=== PATIENT | female | born 2000 | race Caucasian/White ===

== ENCOUNTER 2021-06-26 16:03 | Emergency (ER) | payer OTHER, SELFPAY ==
[2021-06-26] VITALS (13 sets, daily range): BP systolic 108–129; BP diastolic 65–82; PULSE 103–142; RESP 12–26; TEMP 37.1; O2SAT 100
--- NOTE | ~2021-06-26 | US_ITS ---
EXAMINATION: US OB <= 14 weeks fetus DATE: 06/26/2021 22:35 INDICATION: Abdominal pain and vomiting during first trimester TECHNIQUE: Real-time pelvic transabdominal and transvaginal ultrasound was performed. COMPARISON: None. FINDINGS: The uterus measures 14.8 x 9.9 x 8.8 cm. There is an intrauterine gestational sac. A yolk sac is identified. heart motion is identified measuring 187 beats per minute (bpm) by M-mode Do ppler. The crown rump length measures 2.2 cm, which correlates with an estimated gestational ag e of 8 weeks and 6 day(s). The left ovary is not visualized however no left adnexal abnormality is seen. The right ovary measure s 5.2 x 2.5 x 3.7 cm and contains a 3 cm cyst. There is normal vascular flow in the right ovary. Ther e is no free fluid in the pelvis. IMPRESSION: 1. Live intrauterine with an estimated gestational age of 8 weeks and 6 days. Reviewed, dictated and finalized at location F. [employer]IDE
--- NOTE | 2021-06-26 18:35 | ECG_ITS ---
Measurements Intervals [place] Rate: 109 P: 73 RI: 176 QRS: 51 QRSD: 81 T: 26 QT: 321 QTc: 434 Interpretive Statements SINUS TACHYCARDIA POSSIBLE LEFT ATRIAL ENLARGEMENT INCOMPLETE RIGHT BUNDLE BRANCH BLOCK BORDERLINE T WAVE ABNORMALITY- INFERIOR LEADS ABNORMAL ECG Electronically Signed On 06-26-2021 20:04:27 [employer] by Segundo Hall D.O.
--- NOTE | 2021-06-26 19:00 | PC.NURSE ---
Assuming care of pt.
[2021-06-26 19:08] LABS: Basophils Percent Auto 0.4 % (0.2-1.2); Eosinophils Percent Auto 0.2 % (0-4.4); Hematocrit 38.3 % (37.0-47.0); Hemoglobin 12.5 g/dL (12.0-15.0); Immature Granulocyte Absolute 0.02 K/mm3 (0.00-0.031); Immature Granulocyte Percent A 0.4 % (0-0.5); Lymphocytes Absolute Auto 0.41 K/mm3 (0.9-3.2); Lymphocytes Percent Auto 8.1 % (18.3-44.2); Mean Corpuscular HGB Conc 32.6 g/dl (32-36); Mean Corpuscular Hemoglobin 27.7 pg (26-34); Mean Corpuscular Volume 84.7 fl (80-100); Mean Platelet Volume 9.9 fl (7.4-10.4); Monocytes Absolute Auto 0.3 K/mm3 (0.1-0.6); Monocytes Percent Auto 6.7 % (2.6-8.5); Neutrophils Absolute Auto 4.3 K/mm3 (1.3-6.7); Neutrophils Percent Auto 84.2 % (45.5-73.1); Platelet Count Result 285 k/mm3 (150-375); Red Blood Count 4.52 M/mm3 (4.2-5.4); Red Cell Distribution Width 14.4 % (11.5-14.5); White Blood Count 5.1 K/mm3 (4.5-10.0)
--- NOTE | 2021-06-26 19:11 | ED.PREGNANCY ---
HPI - General Chief complaint: Weakness Stated complaint: lightheaded/vomiting Time Seen by Provider: 06/26/21 18:35 Source: patient and RN notes reviewed Mode of arrival: ambulatory Limitations: no limitations History of Present Illness HPI Narrative: This is 21 year old female who presents for evaluation of nausea and vomiting during . She reports she was found to be 2 months ago when she was seen in another ER. She was diagnosed with UTI and discharge home on antibiotics. She states she developed low back pain and abdominal pain last week so she went back to ER. She was given antibiotics again . She has come to ER because she started having nausea, vomiting yesterday. She has history of irregular menses so she is unsure of how far along in her . She denies fever, chills, vaginal bleeding, or discharge. She has not had an US for this . Related Data Home Medications Medication Instructions Recorded Confirmed cephalexin [Keflex] 500 mg PO Q8H 06/26/21 06/26/21 Allergies Allergy/AdvReac Type Severity Reaction Status Date / Time amoxicillin Allergy Rash Verified 06/26/21 18:46 sulfamethoxazole Allergy Rash Verified 06/26/21 18:46 [From Bactrim] trimethoprim [From Bactrim] Allergy Rash Verified 06/26/21 18:46 Review of Systems Review of Systems: All systems reviewed & are unremarkable except as noted in HPI and below Constitutional: Constitutional: Denies chills, Reports fatigue and Denies fever(s) ENT: Denies dysphagia and Denies sore throat Cardiovascular: Cardiovascular: Denies chest pain Respiratory: Respiratory: Denies cough and Denies dyspnea Gastrointestinal: Gastrointestinal: Reports abdominal pain, Denies diarrhea, Reports nausea and Reports vomiting Genitourinary: Genitourinary: Denies hematuria and Denies nocturia Musculoskeletal: Musculoskeletal: Reports back pain Neurologic: Denies headache(s) [facility] Past Medical History Medical History (Updated 06/27/21 @ 00:00 by Raul Armas) Acute UTI Kidney disease Surgical History Surgical History (Updated 06/26/21 @ 19:21 by Samira Ramesh MD) No pertinent past surgical history Social History Social History (Updated 06/26/21 @ 19:21 by Samira Ramesh MD) Smoking status: Never smoker Exam Const: General: no acute distress and alert Orientation/consciousness: patient oriented x3 Eyes: EOM: EOMs intact bilaterally Resp: Effort & Inspection: normal respiratory effort and no retractions Auscultation: clear to auscultation bilaterally Cardio: Rate: tachycardic Rhythm: regular rhythm Heart sounds: no murmurs GI: GI Palp: Yes Soft to palpation, Yes Tenderness to palpation present (GI) (suprapubic), No Guarding due to palpation present (GI) and No Rigid due to palpation Auscultation: normal bowel sounds Back/Spine/Pelvis: Back: no CVA tenderness Skin: General skin exam: normal color Rashes: no rashes Neuro: General: patient oriented x3, moves all extremities and CN's II-XI intact bilaterally Psych: Mental Status: mental status grossly normal Affect: normal affect Course Reevaluation(s) Reevaluation #1: Patient states she feels better. She was able to eat jello. I discussed US shows IUP. She is already on antibiotics. Date: 06/26/21 Time: 23:26 Vital Signs Vital signs: Vital Signs Temperature 98.8 F 06/26/21 16:05 Pulse Rate 118 H 06/26/21 16:05 Respiratory Rate 20 06/26/21 16:05 Blood Pressure 112/67 06/26/21 16:05 Pulse Oximetry 100 06/26/21 16:05 Temperature 98.8 F 06/26/21 16:05 Pulse Rate 103 H 06/26/21 23:38 Respiratory Rate 16 06/26/21 23:38 Blood Pressure 116/77 06/26/21 23:38 Pulse Oximetry 100 06/26/21 23:38 MDM - OB/Uterine Contractions Lab Data Attestation: I reviewed the patient's lab results. Result diagrams: 06/26/21 18:50 06/26/21 18:50 Labs: Lab R
[2021-06-26 19:15] LABS: Add Urine Microscopic? YES; Appearance Urine Cloudy (Clear); Bacteria Urine Trace /hpf; Bilirubin Urine Negative (Negative); Blood Urine Negative (Negative); Color Urine Yellow (Yellow); Glucose Urine UA Negative (Negative); Ketones Urine 2+ mg/dL (Negative); Leukocyte Esterase Ur 2+ LEU/UL (Negative); Mucus Urine Few /lpf; Nitrate Urine Negative (Negative); Protein Urine 1+ mg/dL (Negative); Specific Grav Ur 1.024 (1.001-1.035); Squamous Epithelial Cell Urine Many /hpf (Few); Urobilinogen Urine Negative mg/dL (<2.0)
[2021-06-26 19:18] LABS: Alanine Aminotransferase 16 U/L (4-35); Albumin Level 4.8 g/dL (3.5-5.1); Alkaline Phosphatase 73 U/L (38-126); Anion Gap 13 mmol/L (8-16); Aspartate Amino Transferase 19 U/L (14-36); Bilirubin,Total 0.4 mg/dL (0.2-1.3); Blood Urea Nitrogen 5 mg/dL (7-17); Calcium 9.2 mg/dL (8.4-10.2); Carbon Dioxide 20 mmol/L (22-30); Chloride 101 mmol/L (98-107); Estimated CRCL calculation 125 ml/min; Estimated Glomerular Filt Rate > 60; Glucose 90 mg/dL (65-110); Potassium 3.6 mmol/L (3.4-5.0); Sodium 134 mmol/L (137-145)
[2021-06-26] MEDS: LACTATED RINGERS 1,000 ML 999 ML IV CONT (19:21)
[2021-06-26] MEDS: METOCLOPRAMIDE HCL INJ 10 MG/2 ML VIAL IV PUSH (19:21)
[2021-06-26 19:54] LABS: Lipase 47 U/L (23-300); Magnesium 1.8 mg/dL (1.6-2.3)
[2021-06-26] MEDS: DEXTROSE 5%/LACTATED RINGERS 1,000 ML 1000 ML IV CONT (21:10)
== END 2021-06-26 23:39 | disposition home or self-care (01) ==
PROVIDERS: Emergency Medicine; Emergency Provider General Practice
DX: O21.1 Hyperemesis gravidarum with metabolic disturbance (principal); Z87.440 Personal history of urinary (tract) infections; Z3A.08 8 weeks gestation of pregnancy; O99.411 Diseases of the circulatory system complicating pregnancy, first trimester; I45.10 Unspecified right bundle-branch block; R00.0 Tachycardia, unspecified; R94.31 Abnormal electrocardiogram [ECG] [EKG]
CPT/HCPCS: 36415; 76801; 80053; 81001; 81025; 83690; 83735; 84702; 85025; 85461; 87086; 93005; 96361; 96374; 99284; J2765; J7120; J7121

== ENCOUNTER 2021-09-26 12:14 | Observation (INO) | payer OTHER, SELFPAY ==
--- NOTE | ~2021-09-26 | US_ITS ---
EXAMINATION: US OB limited DATE: 09/26/2021 14:09 INDICATION: Abdominal pain. TECHNIQUE: Real-time ultrasound of the pelvis was performed. COMPARISON: 09/04/2021 FINDINGS: There is a single living fetus in breech presentation. The placenta is fundal and posterior, 7 cm fr om the cervix. heart rate is 152 beats per minute (bpm). The amniotic fluid index is 19.07[ cm, which is normal (fifth to 95th percentile is 9.7 to 21.6 cm).] Right ovary measures 4.2 x 2.1 x 2.3 cm. Incidental note of a 2.4 cm simple right ovarian cyst. The l eft ovary measures 2.7 x 1.6 x 2.1 cm. Vascular flow present in both ovaries. IMPRESSION: 1. Single living fetus in [breech presentation.] 2. Fundal/posterior placenta. 3. Normal ANTON. 4. Sonographically normal-appearing ovaries. Reviewed, dictated and finalized at location K.
[2021-09-26 12:26] VITALS: BP 117/68; PULSE 73
--- NOTE | 2021-09-26 13:23 | PC.NURSE ---
1323- called, informed pt came in crying stating she is having abdominal pain that she rates 10/10. Pt states she vomited twice at home d/t the pain and has kidney problems . Pt is stating she is unable to void. Abdomen is tender to touch from umbilicus to left side. This is her third with two pre-term deliveries. FHR monitored around 155. No contractions noted. Orders received to offer 1gram tylenol and zofran PO.US to check placenta,ovaries, and ANTON. PO hydrate to help obtain UA.
[2021-09-26] MEDS: ACETAMINOPHEN 500 MG TABLET 1000 MG PO (14:20)
[2021-09-26] MEDS: ONDANSETRON HCL ODT 4 MG TABLET PO (14:20)
[2021-09-26 14:36] LABS: Appearance Urine Clear (Clear); Bilirubin Urine Negative (Negative); Color Urine Yellow (Yellow); Glucose Urine UA Negative (Negative); Ketones Urine 1+ mg/dL (Negative); Leukocyte Esterase Ur 2+ LEU/UL (Negative); Nitrate Urine Negative (Negative); Protein Urine Negative (Negative); Specific Grav Ur 1.015 (1.001-1.035); Urobilinogen Urine 0.2 mg/dL (<2.0); pH Urine 6.5 (5.0-9.0)
[2021-09-26 14:46] LABS: Squamous Epithelial Cell Urine Many /hpf (Few); WBC Urine 21-30 /hpf
[2021-09-26 14:49] LABS: Add Urine Microscopic? YES
[2021-09-26 15:07] LABS: Blood Urine Trace-Intact (Negative)
--- NOTE | 2021-09-26 15:35 | PC.NURSE ---
1535- called,read US and UA results. Discharge orders received., encourage pt to PO hydrate at home.
--- NOTE | 2021-09-26 16:00 | OBADM ---
This patient, Lorena Camacho, admitted to the OB room OB Post 113 for observation. Patient/family oriented to hospital policies and general routines including ID bracelet, bed and alarms, visiting hours, pain management, procedures, bathroom and other care routines, personal items, smoking policy, room service/diet, and visiting hours. Patient/Family are encouraged to report perceived risks to care and to ask questions if they do not understand what they are told or what they should do.
--- NOTE | 2021-09-26 16:04 | PC.NURSE ---
1535- informed pt states her pain is intermittent now and around 3/10, pt wants to go home.
--- NOTE | 2021-09-27 13:49 | PM.OBTRLD ---
OB - Triage/Final Diagnosis Visit Information Comments/Additional reasons for admission: I have assessed the risk for this patient, Lorena Camacho, and determined that she would benefit from observation care. Evaluation Laboratory results: Laboratory Tests 09/26/21 14:23 Urine Color Yellow Urine Appearance Clear Urine pH 6.5 Ur Specific [place] 1.015 Urine Protein Negative Urine Glucose (UA) Negative Urine Ketones 1+ H Ur Blood (Man) Trace-intact Urine Nitrate Negative Urine Bilirubin Negative Urine Urobilinogen 0.2 Leukocyte Esterase Rfl 2+ H Urine RBC 3-5 H Urine WBC 21-30 H Ur Squamous Epith Cells Many H Final Diagnosis (1) Pelvic pain affecting in second trimester, antepartum: Code(s): O26.892 - Other specified related conditions, second trimester; R10.2 - Pelvic and perineal pain Status: Acute
== END 2021-09-26 15:50 | disposition home or self-care (01) ==
PROVIDERS: Admitting Provider Obstetrics & Gynecology; Visit Provider Obstetrics & Gynecology
DX: O26.892 Other specified pregnancy related conditions, second trimester (principal); R10.2 Pelvic and perineal pain; Z3A.22 22 weeks gestation of pregnancy
CPT/HCPCS: 76815; 81001; 87086; A9270; G0378; G0379

== ENCOUNTER 2023-05-02 19:45 | Emergency (ER) | payer OTHER, SELFPAY ==
--- NOTE | ~2023-05-02 | CT_ITS ---
CT of the Abdomen and Pelvis: Indication: Abdominal pain Technique: 2.5 mm axial scans were obtained through the abdomen and pelvis following intravenous adm inistration of 100 cc of Omnipaque 350. Dose reduction technique was used on this scan by utilizing a utomated exposure control and iterative reconstruction technique. The dose-length product (DLP) was 3 58.28 mGy-cm. Findings: Scans through the lung bases are unremarkable. The liver, spleen, pancreas, gallbladder, adrenals and kidneys are within normal limits. No evidence of aortic aneurysm. No lymphadenopathy. No bowel obstruction or bowel wall thickening. Small amount of pneumoperitoneum present. No definite abscess present. Images through the pelvis were performed. Urinary bladder unremarkable. No adnexal mass seen. Small a mount of pelvic ascites. Impression: Small amount of pneumoperitoneum. Correlate for bowel perforation versus recent surgery or other intr a-abdominal procedure. Small amount of pelvic ascites. Reviewed, dictated and finalized at [facility]. [employer] Impression: Small amount of pneumoperitoneum. Correlate for bowel perforation versus recent surgery or other intra-abdominal procedure. Small amount of pelvic ascites.
[2023-05-02 19:49] VITALS: BP 142/96; PULSE 83; RESP 16; TEMP 36.8; O2SAT 100
[2023-05-02 20:41] LABS: Basophils Absolute Auto 0.1 K/mm3 (0.0-0.1); Basophils Percent Auto 0.9 % (0.2-1.2); Eosinophils Absolute Auto 0.2 K/mm3 (0-0.3); Eosinophils Percent Auto 1.7 % (0-4.4); Hemoglobin 10.9 g/dL (12.0-15.0); Immature Granulocyte Absolute 0.02 K/mm3 (0.00-0.031); Immature Granulocyte Percent A 0.2 % (0-0.5); Lymphocytes Absolute Auto 3.63 K/mm3 (0.9-3.2); Lymphocytes Percent Auto 40.5 % (18.3-44.2); Mean Corpuscular HGB Conc 29.5 g/dl (32-36); Mean Corpuscular Hemoglobin 25.3 pg (26-34); Mean Corpuscular Volume 85.8 fl (80-100); Monocytes Absolute Auto 0.5 K/mm3 (0.1-0.6); Neutrophils Absolute Auto 4.6 K/mm3 (1.3-6.7); Neutrophils Percent Auto 51.7 % (45.5-73.1); Platelet Count Result 412 k/mm3 (150-375); Red Blood Count 4.31 M/mm3 (4.2-5.4)
[2023-05-02 20:52] LABS: Alanine Aminotransferase 29 U/L (6-35); Albumin Level 4.3 g/dL (3.5-5.1); Alkaline Phosphatase 54 U/L (38-126); Anion Gap 10 mmol/L (8-16); Aspartate Amino Transferase 26 U/L (14-36); Bilirubin,Total 0.4 mg/dL (0.2-1.3); Blood Urea Nitrogen 9 mg/dL (7-17); Calcium 9.3 mg/dL (8.4-10.2); Carbon Dioxide 23 mmol/L (22-30); Chloride 106 mmol/L (98-107); Estimated CRCL calculation 552 ml/min; Estimated Glomerular Filt Rate > 60; Glucose 84 mg/dL (65-110); Potassium 4.2 mmol/L (3.4-5.0); Sodium 139 mmol/L (137-145)
[2023-05-02 20:53] LABS: Prothrombin Time 13.1 Seconds (11.1-14.7)
[2023-05-02 20:54] LABS: Partial Thromboplastin Time 27.8 SECONDS (22.3-36.8)
[2023-05-02 21:02] LABS: Platelet Estimate Increased (Adequate)
[2023-05-02 21:03] LABS: Hypochromasia 1+ (NORMAL); Schistocytes None Seen (NORMAL)
[2023-05-02 23:28] VITALS: BP 117/72; PULSE 64; RESP 20; O2SAT 100
--- NOTE | 2023-05-03 | PC.NURSE ---
Pt to CT at this time.
[2023-05-03] MEDS: SODIUM CHLORIDE 0.9% IV 1,000 ML 999 ML IV CONT (00:19)
[2023-05-03] MEDS: ACETAMINOPHEN 500 MG TABLET 1000 MG PO (00:19)
[2023-05-03] MEDS: ONDANSETRON INJ 4 MG/2 ML VIAL IV PUSH (00:19)
--- NOTE | 2023-05-03 00:43 | ED.ABDPAIN ---
HPI - Abdominal Pain General Chief Complaint: Recheck/Abnormal Lab/Rx Stated Complaint: sob, peeing and pooping blood fallopian removal Time Seen by Provider: 05/02/23 23:13 History of Present Illness HPI narrative: This is a 23-year-old female, status post bilateral salpingectomy 48 hours ago at [facility], who presents to the emergency department complaining of abdominal pain, hematuria, hematochezia and lightheadedness. She complains that her incision sites in her umbilicus are itchy and mother she has also had sharp abdominal pain, rated 7/10. Related Data Allergies Allergy/AdvReac Type Severity Reaction Status Date / Time amoxicillin Allergy Rash Verified 08/16/21 16:00 cephalexin [From Keflex] Allergy Hives Verified 05/02/23 19:47 nitrofurantoin Allergy Hives Verified 05/02/23 19:47 [From Macrobid] sulfamethoxazole Allergy Rash Verified 08/16/21 16:00 [From Bactrim] trimethoprim [From Bactrim] Allergy Rash Verified 08/16/21 16:00 Review of Systems Review of Systems: CONSTITUTIONAL: Denies fever, chills, or sweats. CARDIOVASCULAR: Denies chest pain, palpitations, or edema. RESPIRATORY: Denies cough or dyspnea. GASTROINTESTINAL: Abdominal pain, nausea, bright red blood per rectum denies vomiting, or diarrhea. GENITOURINARY: Hematuria denies dysuria or hematuria. SKIN: Denies rash or itching. MUSCULOSKELETAL: Denies back pain, joint pain, or myalgia. NEUROLOGIC: Lightheadedness denies headache, numbness, or weakness. PSYCHIATRIC: Denies anxiety or depression. [facility] Past Medical History Medical History (Updated 05/03/23 @ 00:49 by Maurisio Cristina MD) Acute UTI Kidney disease Surgical History Surgical History (Updated 05/03/23 @ 00:47 by Maurisio Cristina MD) Status post bilateral salpingectomy Social History Social History Smoking status: Never smoker Alcohol intake: never Substance use: never Substance use type: does not use Living arrangements: with family Occupation/Education: unemployed Gender identity (if verbalized by the patient): Female Sexual Orientation (if Verbalized by the Patient): Straight or Heterosexual Exam Narrative: GENERAL: Well-appearing, well-nourished, appears uncomfortable HEAD: Normocephalic, atraumatic. EYES: PERRLA and EOMI. ENT: Nares clear, no rhinorrhea or epistaxis. Mucous membranes moist. Oropharynx without tonsillar hypertrophy exudate or other lesions. CHEST: Clear to auscultation. No respiratory distress. No wheezes rales or rhonchi HEART: Regular rate and rhythm. No murmur heard. Normal peripheral pulses. ABDOMEN: Soft, tender to palpation, greater in the right lower quadrant with out rebound, nondistended, normal active bowel sounds. Healing laparoscopy incision sites with Steri-Strips noted at the umbilicus and bilateral lower quadrants. There is no noted erythema, induration, bleeding or purulent drainage EXTREMITIES: Normal range of motion. No edema. SKIN: Warm, dry, no rash. NEURO: No focal deficits. Alert and oriented x3. PSYCH: Normal mood and affect. Course Course Emergency Course: 02:30 - Vital signs within normal limits. His CBC demonstrates anemia with hemoglobin of 10.9, decreased from 12.5 in June 2021. Platelets slightly elevated at 412. INR within normal limits. Chemistries unremarkable. My review of the patient's CT abdomen pelvis shows a small amount free air in the abdomen, and some fluid in the pelvis. I suspect these are related to the patient's recent laparoscopic surgery. Radiology interpretation of the patient's imaging is not yet available. The patient requests to be discharged to care for her child. I advised her to follow up with her OB and primary care provider. Will discharge the patient against medical advise. Discussed return and emergency precautions including signs/symptoms of acute abdomen. The patient voiced u
[2023-05-03 02:30] VITALS: BP 111/78; PULSE 68; RESP 20; O2SAT 98
== END 2023-05-03 02:30 | disposition left against medical advice (07) ==
LOC: ANHED 05-03 00:30
PROVIDERS: Emergency Provider Preventive Medicine Aerospace Medicine
DX: K92.1 Melena (principal); R10.31 Right lower quadrant pain; R31.9 Hematuria, unspecified; Z90.79 Acquired absence of other genital organ(s); Z98.890 Other specified postprocedural states; Z87.440 Personal history of urinary (tract) infections; N28.9 Disorder of kidney and ureter, unspecified
CPT/HCPCS: 36415; 74177; 80053; 85025; 85610; 85730; 86850; 86900; 86901; 96361; 96374; 99284; A9270; J2405; J7030; Q9967